=== PATIENT | female | born 1965 | race Caucasian/White ===

== ENCOUNTER → 2021-01-22 | Day surgery (SDC) | payer BC, OTHER ==
[2021-01-20 16:08] LABS: INR 0.85; PARTIAL THROMBOPLASTIN TIME 23.3 seconds (23.8-35.5); PROTHROMBIN TIME 11.8 seconds (11.9-14.5)
[~2021-01-22] MED LIST: BUPIVACAINE 0.25% 30ML SDV ONE; HYDROCODON-ACE1 EA12 PO; SODIUM CHLORIDE 0.9% 50ML 100 ML ONE; VICODIN ES TAB1 EACH PO; Z.0.LISINOPRIL20 MG PO; Z.0.NORCO 10-325 T1 PO; [UNRECOGNIZED DRUG - OTHER] PO
[2021-01-22 10:50] VITALS: BP 129/69
== END | disposition home or self-care (01) ==
LOC: OR 06:35
PROVIDERS: ATTEND Neurological Surgery
DX: G56.02 Carpal tunnel syndrome, left upper limb (principal); I10 Essential (primary) hypertension; K27.9 Peptic ulcer, site unspecified, unspecified as acute or chronic, without hemorrhage or perforation; F32.9 Major depressive disorder, single episode, unspecified; F17.210 Nicotine dependence, cigarettes, uncomplicated; Z01.810 Encounter for preprocedural cardiovascular examination; Z01.812 Encounter for preprocedural laboratory examination; Z20.822 Contact with and (suspected) exposure to COVID-19; Z98.1 Arthrodesis status
CPT/HCPCS: 36415; 64721; 85610; 85730; 93005; J0690; U0002

== ENCOUNTER → 2024-01-21 | Day surgery (SDC) | payer BC ==
[~2024-01-21] MED LIST changes: -BUPIVACAINE 0.25% 30ML SDV ONE; +FENTANYL CITRATE/PF 100MCG/2 ML INJ ONE; +GLUCAGON FOR INJ 1 MG VIAL ONE; +LEXAPRO20 MG PO; +LIDOCAINE HCL 2% LOCAL INJ 5 ML SDV VIAL INJ ONE; +NICODERM CQ1 EAC1; +PROPOFOL IV EMULSION 10 MG/ML 20 ML VIAL ONE; +PROPOFOL IV EMULSION 10 MG/ML 50 ML VIAL IV ONE; -SODIUM CHLORIDE 0.9% 50ML 100 ML ONE; +WELLBUTRIN SR200 MG PO
[2024-01-21] MEDS: LACTATED RINGER'S 1,000 ML ONE (14:31)
[2024-01-21 16:02] LABS: WBC,FECAL (FECAL LACTOFERRIN) POSITIVE (NEGATIVE)
[2024-01-21 16:30] VITALS: BP 131/93; PULSE 87; RESP 16; TEMP 97.5; O2SAT 97
[2024-01-25 08:15] LABS: ENDOMYSIAL ANTIBODIES, IGA Negative (Negative); IMMUNOGLOBULIN A 74 mg/dL (87-352)
[2024-01-25 08:38] LABS: TISSUE TRANSGLUTAMINASE IGA AB <2 U/mL (0-3)
== END | disposition home or self-care (01) ==
LOC: OR 13:11
PROVIDERS: ATTEND Internal Medicine Gastroenterology
DX: K29.70 Gastritis, unspecified, without bleeding (principal); K63.89 Other specified diseases of intestine; K25.9 Gastric ulcer, unspecified as acute or chronic, without hemorrhage or perforation; K31.89 Other diseases of stomach and duodenum; K22.89 Other specified disease of esophagus; K44.9 Diaphragmatic hernia without obstruction or gangrene; K57.30 Diverticulosis of large intestine without perforation or abscess without bleeding; K59.00 Constipation, unspecified; Z71.3 Dietary counseling and surveillance; I25.10 Atherosclerotic heart disease of native coronary artery without angina pectoris; I10 Essential (primary) hypertension; Z71.89 Other specified counseling; F41.9 Anxiety disorder, unspecified; F32.A Depression, unspecified; Z88.6 Allergy status to analgesic agent; F17.200 Nicotine dependence, unspecified, uncomplicated; Z01.810 Encounter for preprocedural cardiovascular examination; Z79.899 Other long term (current) drug therapy; Z68.26 Body mass index [BMI] 26.0-26.9, adult; Z80.0 Family history of malignant neoplasm of digestive organs
CPT/HCPCS: 43239; 43450; 45380; 82784; 83516; 83630; 83993; 86256; 87045; 87177; 87324; 87328; 87449; 93005; J1610; J2001; J2470; J2704 ×2; J3010; J7121; 45378